=== PATIENT | female | born 1985 | race Caucasian/White ===

== ENCOUNTER 2018-03-07 13:10 | Emergency (ER) | payer MEDICAID ==
[~2018-03-07] VITALS: Ht 152.4 cm; Wt 95.5 kg
[2018-03-07 13:14] VITALS: BP 154/87; TEMP 98.6
[2018-03-07] MEDS ORDERED: ADIPEX-P37.5 MG PO (13:14)
[2018-03-07 13:41] LABS: BASO % 0.3 % (0.0-2.0); EOS # 0.3 (0.0-0.7); EOS % 2.4 % (0-4.0); GRAN % 63.6 % (42.2-75.2); HEMATOCRIT 38.9 % (37.0-47.0); HEMOGLOBIN 13.4 g/dl (12.5-16.0); LYMPH # 3.2 (1.2-3.4); LYMPH % 28.8 % (20.0-51.0); MEAN CELL VOLUME 88 fl (80.0-100.0); MEAN CORPUSCULAR HEMOGLOBIN 30 pg (27.0-31.0); MEAN CORPUSCULAR HGB CONC 34 g/dl (33.0-37.0); MEAN PLATELET VOLUME 9.1 fl (7.4-10.4); MONO # 0.5 (0.1-0.6); MONO % 4.6 % (1.7-9.3); PLATELET COUNT 346 K/mm3 (130-400); RED BLOOD COUNT 4.44 M/mm3 (4.10-5.30); REDCELL DISTRIBUTION WIDTH-CV 13.9 % (11.5-14.5)
[2018-03-07 13:47] LABS: CALCIUM 9.4 mg/dL (8.4-10.2); CREATININE, serum 0.59 mg/dL (0.52-1.25); POTASSIUM 3.5 mmol/L (3.4-5.0)
[2018-03-07 16:48] VITALS: PULSE 81
== END 2018-03-07 16:48 | disposition home or self-care (01) ==
LOC: COL.ER 13:10
PROVIDERS: Emergency Medicine
DX: O03.9 Complete or unspecified spontaneous abortion without complication (principal)

== ENCOUNTER → 2018-03-09 | Outpatient (CLI) | payer MEDICAID ==
[~2018-03-09] MED LIST: ADIPEX-P37.5 MG PO
== END ==
LOC: COL.LAB 12:25
DX: Z01.89 Encounter for other specified special examinations (principal)

== ENCOUNTER → 2018-09-21 | Outpatient (REF) ==
[2018-09-21 18:38] LABS: THYROID STIMULATING HORMONE 2.45 uIU/mL (0.465-4.680)
== END ==
LOC: ZLAB.WCH 17:48
PROVIDERS: Physician Assistant
DX: Z01.89 Encounter for other specified special examinations (principal)

== ENCOUNTER → 2018-09-26 | Outpatient (CLI) | payer MEDICAID ==
[~2018-09-26] VITALS: Ht 152.4 cm; Wt 100.7 kg
[~2018-09-26] MED LIST changes: +AMBIEN 10MG10 MG PO; +HEATHER0.35 MG PO; +PROVENTIL0.09 MG/A1 IH
[2018-09-26 16:04] VITALS: BP 116/76; PULSE 88
== END ==
LOC: LIGHT 15:21
DX: F50.81 Binge eating disorder (principal); J45.909 Unspecified asthma, uncomplicated; F32.9 Major depressive disorder, single episode, unspecified; E66.01 Morbid (severe) obesity due to excess calories; Z68.41 Body mass index [BMI] 40.0-44.9, adult; Z71.3 Dietary counseling and surveillance
CPT/HCPCS: G0463

== ENCOUNTER → 2018-10-09 | Outpatient (CLI) | payer MEDICAID | LOC: LIGHT 14:12 | DX: F50.81 Binge eating disorder (principal); J45.909 Unspecified asthma, uncomplicated; F32.9 Major depressive disorder, single episode, unspecified; E66.01 Morbid (severe) obesity due to excess calories; Z68.41 Body mass index [BMI] 40.0-44.9, adult; Z71.3 Dietary counseling and surveillance ==

== ENCOUNTER → 2018-10-26 | Outpatient (CLI) | payer MEDICAID ==
[~2018-10-26] VITALS: Ht 152.4 cm; Wt 103.4 kg
[2018-10-26 14:28] VITALS: BP 116/66; PULSE 76
== END ==
LOC: LIGHT 13:54
DX: F50.81 Binge eating disorder (principal); J45.909 Unspecified asthma, uncomplicated; F32.9 Major depressive disorder, single episode, unspecified; E66.01 Morbid (severe) obesity due to excess calories; Z68.42 Body mass index [BMI] 45.0-49.9, adult; Z71.3 Dietary counseling and surveillance
CPT/HCPCS: G0463

== ENCOUNTER → 2018-11-23 | Outpatient (CLI) | payer MEDICAID ==
[~2018-11-23] VITALS: Ht 152.4 cm; Wt 108.9 kg
[2018-11-23 15:48] VITALS: BP 118/70; PULSE 88
== END ==
LOC: LIGHT 15:33
DX: F50.81 Binge eating disorder (principal); J45.909 Unspecified asthma, uncomplicated; F32.9 Major depressive disorder, single episode, unspecified; E66.01 Morbid (severe) obesity due to excess calories; Z68.42 Body mass index [BMI] 45.0-49.9, adult; Z71.3 Dietary counseling and surveillance
CPT/HCPCS: G0463

== ENCOUNTER → 2019-03-01 | Outpatient (CLI) | payer MEDICAID ==
[~2019-03-01] VITALS: Ht 152.4 cm; Wt 111.6 kg
[~2019-03-01] MED LIST changes: +SAXENDA6 MG/ML SQ
[2019-03-01 11:25] VITALS: BP 126/66; PULSE 96
== END ==
LOC: LIGHT 01-04 14:42
DX: F50.81 Binge eating disorder (principal); J45.909 Unspecified asthma, uncomplicated; F32.9 Major depressive disorder, single episode, unspecified; E66.01 Morbid (severe) obesity due to excess calories; Z68.42 Body mass index [BMI] 45.0-49.9, adult; Z71.3 Dietary counseling and surveillance
CPT/HCPCS: G0463

== ENCOUNTER → 2020-02-28 | Outpatient (CLI) | payer MEDICAID ==
[~2020-02-28] VITALS: Ht 152.4 cm; Wt 122.5 kg
[~2020-02-28] MED LIST changes: +ADIPEX-P37.5 M2 PO; +MIRENA52 MG IY
[2020-02-28 15:02] VITALS: BP 130/76; PULSE 80
== END ==
LOC: LIGHT 04-12 10:31
DX: E66.01 Morbid (severe) obesity due to excess calories (principal); Z68.43 Body mass index [BMI] 50.0-59.9, adult; F50.81 Binge eating disorder; F32.9 Major depressive disorder, single episode, unspecified
CPT/HCPCS: G0463